=== PATIENT | female | born 1945 | race Caucasian/White ===

== ENCOUNTER 2017-05-02 05:09 | Day surgery (SDC) | payer OTHER ==
[2017-04-18 08:48] VITALS: BMI 33.0
--- NOTE | 2017-04-18 09:25 | PAT Medication Instructions ---
Service Date Apr 18, 2017. Current Home Medication List Atenolol (Tenormin), 25 MG PO BID Atorvastatin (Lipitor), 80 MG PO QPM Ibuprofen (Ibuprofen), 1 TAB PEG DAILY PRN for Pain or Fever Lisinopril (Prinivil), 5 MG PO QAM Methimazole (Tapazole), 1 TAB PO QAM Potassium Ext Rel (Klor-Con), 20 MEQ PO QAM Triamterene/Hctz (Dyazide 37.5MG/25MG), 1 CAP PO QAM Medication Instructions For Your Scheduled Surgery - Hold the following medications the morning of surgery: Lisinopril (Prinivil), 5 MG PO QAM Potassium Ext Rel (Klor-Con), 20 MEQ PO QAM Triamterene/Hctz (Dyazide 37.5MG/25MG), 1 CAP PO QAM Ibuprofen (Ibuprofen), 1 TAB PEG DAILY PRN for Pain or Fever (otherwise okay to continue per surgeon) - Take the following medications the morning of surgery with a sip of water OTHERWISE NOTHING TO EAT OR DRINK AFTER MIDNIGHT: Atenolol (Tenormin), 25 MG PO BID Methimazole (Tapazole), 1 TAB PO QAM - Take the following medications as scheduled the night before surgery: Atenolol (Tenormin), 25 MG PO BID Atorvastatin (Lipitor), 80 MG PO QPM Ibuprofen (Ibuprofen), 1 TAB PEG DAILY PRN for Pain or Fever If you have any questions please call us at [phone] or [phone] or [phone]
[2017-04-18 10:00] LABS: BASO % 0.4 %; BASO ABS # 0.03 K/uL (0-0.2); COMPLETE YES; EOS % 3.5 %; HEMATOCRIT 50.1 % (37-47); IG% 0.4 %; LYMPH % 26.3 %; LYMPH ABS # 2.18 K/uL (1.2-3.4); MEAN CELL VOLUME 89.6 fL (80-100); MEAN CORPUSCULAR HEMOGLOBIN 29.7 pg (25-34); MEAN CORPUSCULAR HGB CONC 33.1 g/dl (32-36); MEAN PLATELET VOLUME 9.6 fL (7.4-10.4); MONO % 8.1 %; NEUT % 61.3 %; PLATELET COUNT 283 K/uL (130-400); RED BLOOD COUNT 5.59 M/uL (4.2-5.4)
--- NOTE | 2017-04-18 10:12 | DIAGNOSTIC IMAGING REPORT ---
CHEST 2 VIEWS ROUTINE HISTORY:71 yearsFemalepostmenopausal bleeding. COMPARISON: None available. TECHNIQUE: Frontal and lateral views of the chest. FINDINGS: Cardiomediastinal and hilar silhouettes are within normal limits. No pneumothorax or pleural effusion. Linear subsegmental opacities involve the lingula suggesting scarring. There is atherosclerosis of the aorta. Moderate degenerative changes involve the AC joints bilaterally. IMPRESSION: Linear subsegmental opacities of the lingula suggest atelectasis and/or parenchymal scarring. The above report was generated using voice recognition software. It may contain grammatical, syntax or spelling errors. Electronically signed by: Marc Meraz M.D. 04/18/2017 10:10 AM Dictated Date/Time: 04/18/2017 10:09 AM
[2017-04-18 11:10] LABS: BUN/CREATININE RATIO 15.9 (10-20); CALCIUM 9.2 mg/dl (8.5-10.1); CREATININE 1.1 mg/dl (0.60-1.20)
[~2017-05-02] VITALS: Ht 170.2 cm; Wt 96.3 kg
[~2017-05-02 05:09] MED LIST: ATEN-173 PO; ATOR-26 PO; IBUP-1105 PEG; LISI-729 PO; METH5TAB5 PO; POTA20TA16 PO; TRIA37.5 PO
[2017-05-02 05:25] VITALS: BP 195/103; PULSE 61; TEMP 37.2; O2SAT 92; Ht 170.2 cm; Wt 96.3 kg
[2017-05-02] MEDS ORDERED: LACTATED RINGER'S 1000ML 1,000 ML IV SCH ×2 (06:00)
--- NOTE | 2017-05-02 07:09 | History & Physical Bridge Note ---
H&P Re-Evaluation Bridge Note: I have examined the patient, reviewed the History & Physical and in the interval since the performance of the History & Physical I have noted the following changes of clinical significance: No changes noted
[2017-05-02] MEDS ORDERED: LIDOCAINE HCL 2% 2 ML VIAL (20MG/ML) ONE (07:26)
[2017-05-02] MEDS ORDERED: ONDANSETRON INJ 2 MG/ML 2 ML VIAL ONE (07:26)
[2017-05-02] MEDS ORDERED: PROPOFOL IV EMULSION 10 MG/ML 20 ML VIAL IV ONE (07:26)
[2017-05-02] MEDS ORDERED: MIDAZOLAM HCL 1 MG/ML 2ML VIAL ONE (07:26)
[2017-05-02] MEDS ORDERED: DEXAMETHASONE SOD INJ 4 MG/ML VIAL ONE (07:26)
[2017-05-02] MEDS ORDERED: FENTANYL CITRATE INJ 50 MCG/1 ML 2 ML VIAL ONE ×2 (07:26→08:39)
[2017-05-02] MEDS ORDERED: GLYCOPYRROLATE INJ 0.2 MG/ML VIAL ONE (07:48)
--- NOTE | 2017-05-02 08:25 | [facility] Post Operative Brief Note ---
Immediate Operative Summary Operative Date May 02, 2017. Pre-Operative Diagnosis Post Menopausal Bleeding Post-Operative Diagnosis Post Menopausal Bleeding, Endometrial Polyp Procedure(s) Performed Hysteroscopy Dilation Currettage with Polypectomy Surgeon Dr. Ady Cutler Post Graduate Internship Surgeon(s) Dr. Abel Dsouza Estimated Blood Loss 5ml Findings endometrial polyp Fluids (cc crystalloids) 800 ml Specimens A.) Endometrial Currettings and Polyp Drains none Anesthesia general Complication(s) None Disposition Recovery Room / PACU
[2017-05-02] MEDS ORDERED: ACET-749 PO (08:28)
[2017-05-02] MEDS ORDERED: MTR600X PO (08:28)
[2017-05-02] MEDS ORDERED: ONDANSETRON INJ 2 MG/ML 2 ML VIAL IV PRN ×2 (08:30→08:45)
[2017-05-02] MEDS ORDERED: EpHEDrine SULFATE INJ 50 MG/ML AMP IV PRN (08:30)
[2017-05-02] MEDS ORDERED: PROMETHAZINE HCL INJ 12.5 MG in SODIUM CHLORIDE 0.9% 50ML 50 ML IV PRN (08:30)
[2017-05-02] MEDS ORDERED: LABETALOL HCL IV 5 MG/ML 20ML IV PRN (08:30)
[2017-05-02] MEDS ORDERED: FENTANYL CITRATE INJ 50 MCG/1 ML 2 ML VIAL IV PRN (08:30)
[2017-05-02] MEDS ORDERED: ATROPINE SULFATE 0.1 MG/ML 5ML SYR IV PRN (08:30)
[2017-05-02] MEDS ORDERED: FLUMAZENIL 0.1 MG/1 ML 10 ML VIAL IV PRN (08:30)
[2017-05-02] MEDS ORDERED: NALOXONE HCL 0.4 MG/1 ML VIAL/CARP IV PRN (08:30)
--- NOTE | 2017-05-02 08:30 | Discharge Instructions ---
Discharge Instructions Date of Service May 02, 2017. Admission Reason for Admission: Post Menopausal Bleeding Discharge Discharge Diagnosis / Problem: post menopausal bleeding Discharge Goals Goal(s): Routine recovery after surgery Activity Recommendations Activity Limitations: as noted below Lifting Limitations: no more than 10 pounds Exercise/Sports Limitations: until after follow-up appointment May Resume Sexual Activity: after follow-up appointment Shower/Bathe: no limitations Driving or Machine Use: resume 1 day after discharge ACTIVITY RECOMMENDATIONS: * Avoid tampons, douching, hot tubs, pools, and intercourse until bleeding has stopped. * May shower as usual. * No strenuous activity for 24-48 hours. After 24-48 hours, you can do anything you feel like doing (driving and sports are okay). RETURN TO SCHOOL/WORK: * You may return to school or work after 24 hours unless specified by your physician. DIET: * Resume previous diet. MEDICATIONS: Resume previous medications unless instructed otherwise by your surgeon. Ibuprofen 200mg 2-3 tablets every 4-6 hours as needed --OR-- Aleve 2 tablets every 8-12 hours as needed for post-operative discomfort Medications are over the counter. Tylenol may be used if above medications are contraindicated or not preferred. Medication should be taken with food or milk. do not take on an empty stomach. SPECIAL CARE INSTRUCTIONS: * Check temperature twice daily for one week. Report any elevation over 101 degrees. * Call office if you experience increased pelvic pain or discomfort not relieved by pain medicine, if you have foul smelling vaginal discharge, if you have bleeding that is heavier than a normal menstrual flow. If you are changing a maxi pad every 1- 2 hours, this is too heavy. vaginal spotting is normal for 1-2 weeks. FOLLOW UP VISIT: Call your doctor's office for a post-operative visit. . Current Hospital Diet Patient's current hospital diet: Discharge Diet Recommended Diet: Regular Diet Fluid Restriction: None Procedures Procedures Performed: Hysteroscopy Dilation Currettage with Polypectomy Pending Studies Studies pending at discharge: no Medical Emergencies . Who to Call and When: Medical Emergencies: If at any time you feel your situation is an emergency, please call 911 immediately. . Non-Emergent Contact Non-Emergency issues call your: Primary Care Provider . . "Provider Documentation" section prepared by Ady Cutler. . VTE Core Measure Inpt VTE Proph given/why not?: Treatment not indicated
[2017-05-02] MEDS ORDERED: SODIUM CHLORIDE 0.9% 1000ML 1,000 ML IV SCH (08:31)
[2017-05-02] MEDS ORDERED: MoRPHine SULFATE 2 MG/ML CARP IV PRN ×2 (08:45)
[2017-05-02] MEDS ORDERED: IBUPROFEN 600 MG TAB PO PRN (08:45)
[2017-05-02] MEDS ORDERED: KETOROLAC TROMETHAMINE 15 MG/ML VIAL IV. PRN (08:45)
[2017-05-02] MEDS ORDERED: HYDROCODONE/ACETAMOPHEN 5/325MG TAB PO PRN ×2 (08:45)
[2017-05-02] MEDS ORDERED: OXYCODONE/ACETAMINOPHEN 5-325 TAB PO PRN (08:45)
--- NOTE | 2017-05-02 08:55 | Anesthesiology Progress Note ---
Anesthesia Post Op Note Date & Time May 02, 2017 at 08:54 Vital Signs Pain Intensity: 2 Vital Signs Past 12 Hours Date Time Temp Pulse Resp B/P (MAP) Pulse Ox O2 Delivery O2 Flow Rate FiO2 05/02/17 08:45 50 16 116/59 93 Nasal Cannula 2 05/02/17 08:35 58 16 127/61 94 Mask 10 05/02/17 08:25 52 14 115/53 96 Mask 10 05/02/17 08:15 36.1 51 14 120/53 90 Nasal Cannula 4 05/02/17 05:25 37.2 61 18 195/103 (133) 92 Room Air Notes Mental Status: alert / awake / arousable, participated in evaluation Pt Amnestic to Procedure: Yes Nausea / Vomiting: adequately controlled Pain: adequately controlled Airway Patency, RR, SpO2: stable & adequate BP & HR: stable & adequate Hydration State: stable & adequate Anesthetic Complications: no major complications apparent
[2017-05-02 08:58] VITALS: BP 155/75; PULSE 50; TEMP 36.5; O2SAT 97
[2017-05-02 09:30] VITALS: BP 150/72; PULSE 57; TEMP 36.5; O2SAT 95
[2017-05-02 10:00] VITALS: BP 168/73; PULSE 58; TEMP 36.6; O2SAT 94
--- NOTE | 2017-05-02 16:33 | OPERATIVE REPORT ---
DATE OF OPERATION: 05/02/2017 PREOPERATIVE DIAGNOSIS: Abnormal uterine bleeding. POSTOPERATIVE DIAGNOSIS: Same. PROCEDURES: Hysteroscopy, D&C, and MyoSure polypectomy. SURGEON: Dr. Ady Cutler. [employer] LABORER: Dr. Dsouza. ANESTHESIA: General. CLINICAL HISTORY: The patient is a 71-year-old female, admitted for a hysteroscopy, D&C and polypectomy for abnormal uterine bleeding. The patient was identified and a time-out was called prior to the start of the procedure. DESCRIPTION OF PROCEDURE: After satisfactory general endotracheal anesthesia, the patient was prepped and draped in the usual sterile fashion. A red rubber catheter was then used to empty the bladder of 100 mL of clear urine. Exam under anesthesia revealed the uterus to be moderately enlarged. No adnexal masses. Weighted speculum was then placed in the posterior vault of the vagina. A single tooth tenaculum was then used to grasp the cervix. The cervix was sounded to approximately 8 cm and then dilated. A hysteroscope with saline was then inserted. The contents of the endometrial cavity revealed the presence of a large endometrial polyp. There was no other cavitary lesions that were noted. The hysteroscope was withdrawn and cavity was then enlarged with dilators. Then, the MyoSure device was inserted and the MyoSure hysteroscope was inserted. The polyp was then identified and using the MyoSure, this was then cut out. This was submitted to pathology. After the myomectomy, the cavity was found to be smooth and several swipes of the MyoSure device on the endometrium were used to do curetting of the endometrium. At the end of the procedure, there was no bleeding. The procedure was documented by still video photography. The final sponge, needle and instrument counts were found to be correct. All remaining instruments were then removed. ESTIMATED BLOOD LOSS: 5 mL. TOTAL FLUIDS IN THE CASE: 800 mL. FLUID DEFICIT: 300 mL. No complications. The patient was then placed supine on a stretcher. She was taken to recovery room in stable condition. I attest to the content of the Intraoperative Record and any orders documented therein. Any exceptions are noted below. MTDD
== END 2017-05-02 10:25 | disposition home or self-care (01) ==
LOC: C.ACU 05:09
PROVIDERS: ATTEND Obstetrics & Gynecology
DX: N84.0 Polyp of corpus uteri (principal); N18.3 Chronic kidney disease, stage 3 (moderate); I12.9 Hypertensive chronic kidney disease with stage 1 through stage 4 chronic kidney disease, or unspecified chronic kidney disease; E78.5 Hyperlipidemia, unspecified; J44.9 Chronic obstructive pulmonary disease, unspecified; R73.01 Impaired fasting glucose; N39.3 Stress incontinence (female) (male); L43.9 Lichen planus, unspecified; F17.210 Nicotine dependence, cigarettes, uncomplicated; Z85.3 Personal history of malignant neoplasm of breast; Z79.899 Other long term (current) drug therapy